=== PATIENT | female | born 1975 | race African-American/Black ===

== ENCOUNTER → 2017-07-30 | Outpatient (CLI) | payer OTHER ==
[~2017-07-30] MED LIST: ESTRACE0.5 MG; IBUPROFEN 600600 M1 PO; NORFLEX100 MG PO; TRAMADOL 50 MG50 MG PO
== END ==
LOC: RAD 12:27
DX: M25.561 Pain in right knee (principal)

== ENCOUNTER → 2017-08-07 | Outpatient (CLI) | payer OTHER | LOC: MRI 07:43 | DX: S83.241A Other tear of medial meniscus, current injury, right knee, initial encounter (principal); M76.891 Other specified enthesopathies of right lower limb, excluding foot; X58.XXXA Exposure to other specified factors, initial encounter; Y93.89 Activity, other specified; Y92.89 Other specified places as the place of occurrence of the external cause; Y99.8 Other external cause status ==

== ENCOUNTER → 2018-08-05 | Outpatient (CLI) | payer OTHER | LOC: RAD 12:50 | DX: M54.12 Radiculopathy, cervical region (principal); M43.12 Spondylolisthesis, cervical region ==

== ENCOUNTER → 2018-08-17 | Outpatient (CLI) | payer OTHER | LOC: MRI 07:41 | DX: M47.22 Other spondylosis with radiculopathy, cervical region (principal); M50.122 Cervical disc disorder at C5-C6 level with radiculopathy; M25.78 Osteophyte, vertebrae; M43.22 Fusion of spine, cervical region ==

== ENCOUNTER → 2019-07-22 | Outpatient (CLI) | payer OTHER | LOC: RAD 11:32 | DX: M25.572 Pain in left ankle and joints of left foot (principal); M25.571 Pain in right ankle and joints of right foot ==

== ENCOUNTER → 2021-07-02 | Outpatient (CLI) | payer OTHER | LOC: CAT 09:05 | PROVIDERS: ATTEND Nurse Practitioner | DX: N83.202 Unspecified ovarian cyst, left side (principal); M47.817 Spondylosis without myelopathy or radiculopathy, lumbosacral region ==